=== PATIENT | female | born 1960 | race Caucasian/White ===

== ENCOUNTER 2023-10-27 10:37 | Outpatient (CLI) | payer MEDICAID, SELFPAY | END 2023-10-27 10:38 | disposition home or self-care (01) | LOC: MOBLMAM 10:41 | PROVIDERS: PCP Nurse Practitioner Family; Visit Provider Nurse Practitioner Family | DX: Z12.31 Encounter for screening mammogram for malignant neoplasm of breast (principal) | CPT/HCPCS: 77063; 77067 ==